=== PATIENT | male | born 1985 | race African-American/Black ===

== ENCOUNTER 2017-04-29 10:58 | Emergency (ER) | payer SELFPAY ==
[~2017-04-29] VITALS: Ht 175.3 cm; Wt 77.1 kg
[2017-04-29] MEDS ORDERED: IBUPROFEN 800 MG TABLET PO ONE (11:45)
[2017-04-29] MEDS ORDERED: ACETAMINOPHEN ES 500 MG TABLET PO ONE (11:45)
--- NOTE | 2017-04-29 11:50 | NUR ---
DR ROWELL AT THE BEDSIDE FOR EVAL AND EXAM.
[2017-04-29] MEDS ORDERED: IBUPROFEN 800 MG TABLET ONE (11:59)
[2017-04-29] MEDS ORDERED: ACETAMINOPHEN ES 500 MG TABLET ONE (11:59)
[2017-04-29] MEDS ORDERED: ONDANSETRON 4 MG/2 ML VIAL IV ONE (12:00)
[2017-04-29] MEDS ORDERED: MORPHINE SULFATE 2 MG/1 ML DISP.SYRIN IV ONE (12:00)
[2017-04-29] MEDS ORDERED: PANTOPRAZOLE SODIUM 40 MG VIAL IV ONE (12:00)
[2017-04-29] MEDS ORDERED: IV NORMAL SALINE 1000 ML BAG IV ONE ×2 (12:00→13:15)
[2017-04-29] MEDS ORDERED: PANTOPRAZOLE SODIUM 40 MG VIAL ONE (12:20)
[2017-04-29] MEDS ORDERED: MORPHINE SULFATE 4 MG/1 ML DISP.SYRIN ONE (12:20)
[2017-04-29] MEDS ORDERED: ONDANSETRON 4 MG/2 ML VIAL ONE (12:20)
[2017-04-29 12:23] LABS: BASOPHILS % (AUTO) 0.3 % (0.0-2.0); EOSINOPHILS # (AUTO) 0.1 K/uL (0.0-0.7); EOSINOPHILS % (AUTO) 1.9 % (0.0-7.0); HEMATOCRIT 39.8 % (36.7-47.1); HEMOGLOBIN 13.4 g/dL (12.5-16.3); LYMPHOCYTES # (AUTO) 0.2 K/uL (20.0-40.0); LYMPHOCYTES % (AUTO) 3.6 % (20.5-51.5); MEAN CORPUSCULAR HEMOGLOBIN 28.7 uug (23.8-33.4); MEAN CORPUSCULAR HGB CONC 34 g/dL (32.5-36.3); MEAN CORPUSCULAR VOLUME 85.7 fL (73.0-96.2); MONOCYTES # (AUTO) 0.9 K/uL (2.0-10.0); MONOCYTES % (AUTO) 13.1 % (0.0-11.0); NEUTROPHILS # (AUTO) 5.4 K/uL (1.8-8.9); NEUTROPHILS % (AUTO) 81.1 % (38.5-71.5); PLATELET COUNT (AUTO) 178 K/uL (152-348); RED BLOOD CELL COUNT(AUTO) 4.65 MIL/uL (4.06-5.63); WHITE BLOOD COUNT (AUTO) 6.6 K/uL (3.6-10.2)
[2017-04-29 12:39] LABS: CARBON DIOXIDE 24 mmol/L (21-32); CHLORIDE 101 mmol/L (98-107); CREATININE 1.3 mg/dL (0.6-1.3); GLUCOSE 110 mg/dL (74-106); UREA NITROGEN, BLOOD 10 mg/dL (7-18)
[2017-04-29 12:44] LABS: ALANINE AMINOTRANSFERASE 39 U/L (16-63); ALKALINE PHOSPHATASE 52 U/L (50-136); ASPARTATE AMINOTRANSFERASE 30 U/L (15-37); BILIRUBIN,DIRECT < 0.1 mg/dL (0.0-0.2); BILIRUBIN,TOTAL 0.3 mg/dL (0.2-1.0); LIPASE 170 U/L (73-393); TOTAL PROTEIN, SERUM 6.9 g/dL (6.4-8.2)
[2017-04-29] MEDS ORDERED: diphenhydrAMINE 50 MG/1 ML VIAL IV ONE (13:15)
[2017-04-29] MEDS ORDERED: METOCLOPRAMIDE HCL 10 MG/2 ML VIAL IV ONE (13:15)
[2017-04-29] MEDS ORDERED: diphenhydrAMINE 50 MG/1 ML VIAL ONE (13:26)
[2017-04-29] MEDS ORDERED: METOCLOPRAMIDE HCL 10 MG/2 ML VIAL ONE (13:26)
--- NOTE | 2017-04-29 14:00 | NUR ---
PT REFUSED TO HAVE LP. SPOKE TO PT.
[2017-04-29 16:31] VITALS: BP 122/68
--- NOTE | 2017-04-29 16:32 | NUR ---
Patient discharged to home in stable conditon. Written and verbal after care instructions given. Patient verbalizes understanding of instructions.
--- NOTE | 2017-04-29 16:32 | NUR ---
IV removed. Catheter intact and site benign. Pressure and 4x4 gauze applied to site. No bleeding noted.
== END 2017-04-29 16:33 | disposition left against medical advice (07) ==
LOC: ER 10:58
DX: J09.X2 Influenza due to identified novel influenza A virus with other respiratory manifestations (principal); F17.210 Nicotine dependence, cigarettes, uncomplicated
CPT/HCPCS: 36415; 70030-TC; 70450; 71045; 83605; 83690; 85025; 87040; 87400; 93005; A4663; C9113; J1200; J2270; J2405; J2765; J7030